=== PATIENT | female | born 1975 | race Caucasian/White ===

== ENCOUNTER 2020-02-11 17:40 | Emergency (ER) | payer MEDICAID ==
[~2020-02-11] VITALS: Ht 169.5 cm; Wt 107.5 kg
[2020-02-11 17:45] VITALS: BP 156/113
--- NOTE | 2020-02-11 17:53 | NUR ---
PT AMBULATED TO ER BED 07
--- NOTE | 2020-02-11 18:00 | NUR ---
PT C/O FOREIGN OBJECT PROTRUDING FROM RIGHT LABIAL X 1 DAY, PT WAS REFERRED FROM OBGYN WHO DID NOT KNOW WHAT OBJECT WAS. REFERRED TO ER FOR CT SCAN. MENTIONS LOWER ABD/SUPRAPUBIC PAIN X YEARS. PATIENT STATES PAIN OF 4/10 AT THIS TIME; VSS; PATIENT POSITIONED FOR COMFORT; HOB ELEVATED; BEDRAILS UP X1; BED DOWN. ER MD MADE AWARE OF PT STATUS.
--- NOTE | 2020-02-11 18:11 | NUR ---
Female Business Continuity Specialist accompanied female patient for Pelvic Exam.
--- NOTE | 2020-02-11 19:10 | NUR ---
RECIVED REPORT FROM BRIANNA MORALES. CONTINUATION OF CARE.
--- NOTE | 2020-02-11 19:11 | NUR ---
OBGYN RESIDENT AT BEDSIDE.
--- NOTE | 2020-02-11 19:12 | NUR ---
REPORT GAVE TO ANDREW BRANDT. TRANSFER CARE AT THIS TIME.
--- NOTE | 2020-02-11 19:36 | NUR ---
Dr. Brumfield examining patient.
--- NOTE | 2020-02-11 19:37 | NUR ---
PERFORMING PELVIC EXAM. RN AT BEDSIDE.
--- NOTE | 2020-02-11 19:58 | NUR ---
BRONWYN KENNEDY AT BEDSIDE.
[2020-02-11 20:13] VITALS: BP 130/88
--- NOTE | 2020-02-11 20:13 | NUR ---
Patient discharged with v/s stable. Written and verbal after care instructions given and explained. Patient alert, oriented and verbalized understanding of instructions. Ambulatory with steady gait. All questions addressed prior to discharge. ID band removed. Patient advised to follow up with PMD. Rx of IBUPROFEN AND TYLENOL WITH CODEIN given. Patient educated on indication of medication including possible reaction and side effects. Opportunity to ask questions provided and answered.
== END 2020-02-11 20:13 | disposition home or self-care (01) ==
LOC: MED 17:40
DX: T19.2XXA Foreign body in vulva and vagina, initial encounter (principal); R03.0 Elevated blood-pressure reading, without diagnosis of hypertension; X58.XXXA Exposure to other specified factors, initial encounter; Y93.89 Activity, other specified; Y92.89 Other specified places as the place of occurrence of the external cause; Y99.8 Other external cause status
CPT/HCPCS: 99284

== ENCOUNTER 2021-02-25 17:54 | Emergency (ER) | payer MEDICAID, OTHER ==
[~2021-02-25] VITALS: Ht 162.6 cm; Wt 103.9 kg
[2021-02-25 18:22] VITALS: BP 134/92
--- NOTE | 2021-02-25 18:50 | NUR ---
PATIENT LEFT WITHOUT BEING SEEN BY DR. DEL TORO. NO FURTHER CARE PROVIDED FOR PATIENT.
== END 2021-02-25 18:50 | disposition left against medical advice (07) ==
LOC: MED 17:54
DX: R07.9 Chest pain, unspecified (principal); R42 Dizziness and giddiness; H53.8 Other visual disturbances; Z53.21 Procedure and treatment not carried out due to patient leaving prior to being seen by health care provider
CPT/HCPCS: 93005; 99281; 99283

== ENCOUNTER 2021-09-03 03:11 | Emergency (ER) | payer OTHER ==
[~2021-09-03] VITALS: Ht 170.2 cm; Wt 99.8 kg
[2021-09-03 03:11] VITALS: BP 150/85
--- NOTE | 2021-09-03 03:11 | NUR ---
PATIENT BIBA FROM HOME FOR C/O SUCIDAL IDEATION ACCORDING TO PORFIRIO. PER PORFIRIO THEY HAD AN ARGUMENT AND PATIENT LOCKED HERSELF IN HER ROOM AND POSSIBLY INGESTED A HANDFUL OF AMBIEN AND VODKA PER BOYFRIEND. PATIENT LETHARGIC. WITHDRAWS FROM PAINFUL STIMULI. EYES ARE DILATED. PER PAULINAFRIEND CALLED 911 PATIENT WAS BREATHING ABNORMALLY WELL. PMH: UNOBTAINABLE ALLERGIES: UNOBTAINABLE
--- NOTE | 2021-09-03 03:13 | NUR ---
ILANA WALDROP TO ER BED 04 VIA [facility]
--- NOTE | 2021-09-03 03:27 | NUR ---
PT BIBA AND WAS PLACED ON 4LNC Addendum: 09/03/21 at 0328 by ATILIO B/S CLR
--- NOTE | 2021-09-03 03:30 | NUR ---
patient unable to wake up. unable to obtain information for patient so unable to fill out form. precautions placed for patient as 5150 but have monitors in place for observation d/t ingestion of ambien along with alcohol. safety measures are in place for patient and will continue to monitor patient
--- NOTE | 2021-09-03 03:47 | NUR ---
sent lab draws, urine, pcr, and neeta to lab-- received by [facility] tech
--- NOTE | 2021-09-03 03:49 | NUR ---
[facility] CALLED. SPOKE WITH LEIGHANN AND ADVISES TO MONIOTR FOR ANY DECREASING OR WORNESING EVAPORATOR SYMPTOMS. ALSO RECOMMENDED TO COLLECT ASA, ACETAMINOPHEN, ALCOHOL, AND CBC, CMP LEVELS. RECCOMENED TO MONITOR > 6 HOURS.
[2021-09-03 03:57] LABS: PLATELET COUNT (AUTO) 234 K/uL (140-450); RED CELL DISTRIBUTION WIDTH 13.2 % (11.6-13.7)
[2021-09-03 04:11] LABS: APPEARANCE,URINE CLEAR (CLEAR); BARBITURATE, URINE NEGATIVE ng/ml (NEG <=200); BENZODIAZEPINE, URINE NEGATIVE ng/mL (NEG <=200); BILIRUBIN,URINE NEGATIVE (NEGATIVE); BLOOD, URINE NEGATIVE (NEGATIVE); CANNABINOID, URINE NEGATIVE ng/mL (NEG <=50); COCAINE, URINE NEGATIVE ng/mL (NEG <=300); LEUKOCYTE ESTERASE ,URINE NEGATIVE (NEGATIVE); NITRITE, URINE NEGATIVE (NEGATIVE); OPIATE, URINE NEGATIVE ng/mL (NEG <=2000); PHENCYCLIDINE SCREEN,URINE NEGATIVE ng/mL (NEG <=25); UGLUCOSE NEGATIVE (NEGATIVE)
[2021-09-03 04:14] LABS: HEMATOCRIT 39.8 % (36-48); HEMOGLOBIN 13.7 g/dL (12.0-16.0); MEAN CORPUSCULAR HEMOGLOBIN 32 pg (27-31); MEAN CORPUSCULAR HGB CONC 35 g/dL (33-37); MEAN CORPUSCULAR VOLUME 93.9 fL (80-94); RED BLOOD CELL COUNT(AUTO) 4.24 MIL/uL (4.20-5.40); WHITE BLOOD COUNT (AUTO) 7.1 K/uL (4.8-10.8)
[2021-09-03 04:15] LABS: ALBUMIN 3.6 g/dL (3.4-5.0); CARBON DIOXIDE 30.6 mmol/L (21-32); CREATININE 0.8 mg/dL (0.6-1.3); POTASSIUM 3.6 mmol/L (3.5-5.1); TOTAL BILIRUBIN 0.3 mg/dL (0.0-1.0)
[2021-09-03 04:18] LABS: ACETAMINOPHEN < 0.5 ug/ml (10-30); SALICYLATE < 2.8 mg/dL (2.8-20.0)
[2021-09-03 04:23] LABS: COLOR,URINE STRAW (YELLOW)
[2021-09-03 04:28] LABS: EOSINOPHILS % (MANUAL) 3 % (0-4); LYMPHOCYTES % (MANUAL) 35 % (20-46); MONOCYTES % (MANUAL) 1 % (5-12)
--- NOTE | 2021-09-03 04:38 | NUR ---
spoke with Kike Billingsley the boyfriend about events leading up to patient OD. Per boyfriend, reports that patient said she wont be anybody's problem anymore after daughter had left to go to dad's house because daughter cannot take patient's drinking anymore. so patient went ahead and reported to boyfriend that patient took a handful of ambien. patient was drinking last night when everything happened.
[2021-09-03] MEDS ORDERED: NACL 0.9% 1,000 ML IV ONE (04:55)
--- NOTE | 2021-09-03 06:26 | NUR ---
Patient appears to be resting comfortably in bed. Vital Signs within normal limits. Respirations even and unlabored. Safety measures are in place, patient on monitor, and will continue to monitor patient.
--- NOTE | 2021-09-03 07:12 | NUR ---
Pt report given to Cynthia MORALES. Transfer of care at this time.
--- NOTE | 2021-09-03 08:43 | NUR ---
SPOKE WITH MILAGROS FROM POISON CONTROL, PT CLEARED CONTINUE TO MONITOR PT AT THIS TIME.
--- NOTE | 2021-09-03 08:55 | NUR ---
RECEIVED REPORT FROM ANDREW GOMEZ. TRANSFER OF CARE AT THIS TIME.
--- NOTE | 2021-09-03 09:27 | NUR ---
PT SLEEPING IN BED, VSS, WILL CONTINUE TO MONITOR.
--- NOTE | 2021-09-03 11:16 | NUR ---
GAVE REPORT TO ANDREW LOZANO. TRANSFER OF CARE AT THIS TIME.
--- NOTE | 2021-09-03 11:17 | NUR ---
REPORT RECIEVED FROM ANDREW BENSON FOR TRANSFER OF CARE
--- NOTE | 2021-09-03 11:42 | NUR ---
PT CURRENTLY ON TELEPSY CONSULATION WITH
--- NOTE | 2021-09-03 12:39 | NUR ---
LAB BEDSIDE WITH PATIENT COLLECTING BLOOD WORK
--- NOTE | 2021-09-03 14:17 | NUR ---
PT AMBULATED TO AND FROM RESTROOM. GAIT STEADY.
--- NOTE | 2021-09-03 14:46 | NUR ---
PT PROVIDED WITH WATER
--- NOTE | 2021-09-03 15:23 | NUR ---
PT AMBULATED TO RESTROOM, GAIT STEADY
--- NOTE | 2021-09-03 15:31 | NUR ---
PT MOVED FROM BED 4 TO BED 5. REPORT GIVEN TO ANDREW TERAN FOR TRANSFER OF CARE
--- NOTE | 2021-09-03 17:48 | NUR ---
SPOKE WITH KADY FROM CALL CENTER AND FAXED OVER COPY OF NEGATIVE RESULT
--- NOTE | 2021-09-03 17:48 | NUR ---
patient sitting up in bed, talking to her mother on the phone, she remains calm
--- NOTE | 2021-09-03 18:25 | NUR ---
patient sitting up in bed eating dinner, does not appear to be in any distress.
--- NOTE | 2021-09-03 18:34 | NUR ---
[facility] not able to accommodate patient at this time due to walk in patients. They will keep chart for the AM in case a bed opens up. Will give report to AM call center shift to f/up Fax packet to the following facilities [facility]-Not able to accommodate [facility]
--- NOTE | 2021-09-03 19:30 | NUR ---
Recived report from Jorge Luis MORALES. Transfer of care. Recived patient sleeping but easily arousable. Patient responsive to verbal stimuli. Patient presents as calm and cooperative. Patient denies any pain at this time. VSS on classroom monitor. Respirations are even and unlabored. Skin is warm and dry to touch. Bed is locked and in lowest position. Patient remains on SI precautions. Patient given blanket for comfort measures.
--- NOTE | 2021-09-03 22:02 | NUR ---
Patient woke up from sleeping in bed tearful. Patient needed reorientation to place and 5150 status. Patient given extra blanket and pillow for comfort measures.
--- NOTE | 2021-09-03 22:58 | NUR ---
SOC TELEPSYCH INITIATED PER DR. Beth TAYLOR
--- NOTE | 2021-09-04 01:32 | NUR ---
PATIENT RESTING IN BED WITH EYS CLOSED, RESPIRATIONS ARE EVEN AND UNLABORED. SKIN IS WARM AND DRY TO TOUCH. PATIENT RESPONSIVE TO VERBAL STIMULI.
--- NOTE | 2021-09-04 05:00 | NUR ---
PATIENT HAD C/O NAUSEA, ERMD MADE AWARE AND NEW ORDERS GIVEN. VSS.
[2021-09-04] MEDS ORDERED: ONDANSETRON 4 MG TAB ONE (05:04)
[2021-09-04] MEDS ORDERED: ONDANSETRON 4 MG ODT PO ONE (05:05)
--- NOTE | 2021-09-04 07:11 | NUR ---
REPORT RECEIVED FROM ANDREW BRANDT FOR TRANSFER OF CARE
--- NOTE | 2021-09-04 07:31 | NUR ---
Pt report given to ANDREW BENSON. Transfer of care at this time.
--- NOTE | 2021-09-04 07:32 | NUR ---
RECEIVED REPORT FROM ANDREW LOZANO. TRANSFER OF CARE AT THIS TIME.
[2021-09-04] MEDS ORDERED: PANTOPRAZOLE 40 MG TABEC PO ONE (07:35)
--- NOTE | 2021-09-04 08:25 | NUR ---
PT SITTING UP IN BED HOB ELEVATED BREAKFAST TRAY PROVIDED, VSS, WILL CONTINUE TO MONITOR.
--- NOTE | 2021-09-04 09:28 | NUR ---
PT BEING TELEPSYCHED AT THIS TIME.
--- NOTE | 2021-09-04 11:07 | NUR ---
REPORT GIVEN TO MARCELINO Leon TRANSFER OF CARE AT THIS TIME.
--- NOTE | 2021-09-04 11:08 | NUR ---
Pt report given from Syeda Allan Transfer of care at this time.
[2021-09-04] MEDS ORDERED: LURA20TA PO (11:17)
[2021-09-04 11:30] VITALS: BP 121/79
--- NOTE | 2021-09-04 11:37 | NUR ---
Patient discharged with v/s stable. Written and verbal after care instructions given and explained with teachback. Patient alert, oriented and verbalized understanding of instructions. Ambulatory with steady gait. All questions addressed prior to discharge. ID band removed. Patient advised to follow up with PMD. Rx of Latuda given. Patient educated on indication of medication including possible reaction and side effects. Opportunity to ask questions provided and answered.
== END 2021-09-04 11:37 | disposition home or self-care (01) ==
LOC: MED 03:11
DX: F10.129 Alcohol abuse with intoxication, unspecified (principal); Z20.822 Contact with and (suspected) exposure to COVID-19; R45.851 Suicidal ideations; F32.9 Major depressive disorder, single episode, unspecified
CPT/HCPCS: 36415; 80053; 80305; 81003; 81025; 84702; 85025; 87426; 96360; 99285; G0480; G0482; Q0162; U0003; J7030

== ENCOUNTER 2023-05-30 12:33 | Emergency (ER) | payer OTHER ==
[~2023-05-30] VITALS: Ht 162.6 cm; Wt 94.3 kg
[~2023-05-30 12:33] MED LIST: LURA20TA PO
[2023-05-30 12:41] VITALS: BP 150/87; PULSE 97; RESP 18; TEMP 98.1; O2SAT 96
[2023-05-30 13:09] VITALS: BP 150/87; PULSE 97; RESP 18; TEMP 98.1; O2SAT 96
== END 2023-05-30 13:09 ==
LOC: MED 12:33
DX: Z02.89 Encounter for other administrative examinations (principal)
CPT/HCPCS: 99283